=== PATIENT | male | born 1945 | race Caucasian/White ===

== ENCOUNTER → 2018-01-19 | Outpatient (CLI) | payer MEDICARE, OTHER ==
[~2018-01-19] VITALS: Ht 177.8 cm; Wt 88.0 kg
[~2018-01-19] MED LIST: ALPR0.255 PO; BUPR-93 PO; BUPR2TAB3 SL; BUPR75 PO; FLUO-191 PO; MELO-107 PO; PREG50 PO; RANI150T7 PO
[2018-01-19 10:30] VITALS: BP 134/77
== END | disposition home or self-care (01) ==
LOC: HBOWC 10:06
PROVIDERS: ATTEND Surgery Plastic and Reconstructive Surgery
DX: S61.202A Unspecified open wound of right middle finger without damage to nail, initial encounter (principal); E11.42 Type 2 diabetes mellitus with diabetic polyneuropathy; W31.2XXA Contact with powered woodworking and forming machines, initial encounter; Y93.89 Activity, other specified; Y92.89 Other specified places as the place of occurrence of the external cause; Y99.8 Other external cause status

== ENCOUNTER → 2018-02-09 | Outpatient (CLI) | payer MEDICARE, OTHER ==
[~2018-02-09] MED LIST changes: -BUPR75 PO
[2018-02-09 10:05] VITALS: BP 132/81
== END | disposition home or self-care (01) ==
LOC: HBOWC 09:46
PROVIDERS: ATTEND Surgery Plastic and Reconstructive Surgery
DX: S61.202D Unspecified open wound of right middle finger without damage to nail, subsequent encounter (principal); E11.42 Type 2 diabetes mellitus with diabetic polyneuropathy; W31.2XXD Contact with powered woodworking and forming machines, subsequent encounter